=== PATIENT | male | born 1955 | race Caucasian/White ===

== ENCOUNTER 2022-08-10 05:45 | Emergency (ER) | payer MEDICARE, OTHER ==
[2022-08-10 06:52] LABS: ALT (SGPT) 22 U/L (8-55); AST (SGOT) 30 U/L (5-34); Albumin 4.1 g/dL (3.4-4.8); Alkaline Phosphatase 77 U/L (40-110); Anion Gap 18 mmol/L (10-20); BUN (Urea Nitrogen) 23 mg/dL (8.4-25.7); Bilirubin, Total 0.9 mg/dL (0.2-1.2); Calc. Creatinine Clearance 0 mL/min (70-130); Calcium 8.6 mg/dL (7.8-10.44); Carbon Dioxide 21 mmol/L (23-31); Chloride 103 mmol/L (98-107); Estimated GFR 84; Globulin 3.4 g/dL (2.4-3.5); Glucose 149 mg/dL (80-115); Potassium 4.1 mmol/L (3.5-5.1); Protein, Total 7.5 g/dL (5.8-8.1); Sodium 138 mmol/L (136-145)
[2022-08-10 07:08] LABS: INR-International Normal Ratio 2.2; Prothrombin Time 25.6 sec (12.0-14.7)
[2022-08-10 07:20] LABS: Hemoglobin 16.3 g/dL (14.0-18.0); Mean Corpuscular HGB CONC 34.6 g/dL (32.0-36.0); Mean Corpuscular Volume 92.5 fl (78.0-98.0); Red Blood Cell (RBC) Count 5.08 mill/uL (4.70-6.10)
[2022-08-10 07:33] LABS: #Lymphocytes 0.6 thou/uL (1.20-3.40); #Monocytes 0.4 thou/uL (0.11-0.59); #Neutrophils 6.3 thou/uL (1.40-6.50); %Basophils 0.2 % (0.0-1.0); %Eosinophils 0.3 % (0.0-10.0); %Lymphocytes 8.3 % (21.0-51.0); %Monocytes 5.8 % (0.0-10.0); %Neutrophils 85.4 % (42.0-75.0); Large Platelets SLIGHT; MDiff Complete? YES; Platelet Morphology Comment PLT clumps seen-ADEQ
[2022-08-10 07:36] LABS: White Blood Cell (WBC) Count 7.4 10x3/uL (4.8-10.8)
[2022-08-10 07:39] LABS: Bacteria/HPF 3+ HPF (None Seen); Bilirubin Negative (Negative); Blood, Urine 3+ (Negative); Clarity Extra Turbid (Clear); Glucose, Urine (Dipstick) Normal (Negative); Ketone, Urine Trace mg/dL (Negative); Leukocyte 500 Leu/uL (Negative); Nitrite 2+ (Negative); Protein, Urine (Dipstick) 70 mg/dL (Neg-Trace); Specific Gravity, Urine 1.031 (1.002-1.036); Squamous Epithelial None Seen HPF (0-3); Urobilinogen Normal mg/dL (Less than 2); WBC/HPF Greater than 50 HPF (0-3)
[2022-08-10] MEDS ORDERED: cefTRIAXone\\ROCEPHIN 1 GM VIAL ONE (08:23)
== END 2022-08-10 09:42 | disposition home or self-care (01) ==
LOC: ERS 05:45
DX: N30.01 Acute cystitis with hematuria (principal); Z79.01 Long term (current) use of anticoagulants; Z87.891 Personal history of nicotine dependence
CPT/HCPCS: 71045; 80053; 81003; 81015; 85025; 85610; 87077; 87086; 87186; 93005; 96365; J0696

== ENCOUNTER 2022-08-21 08:20 | Outpatient (CLI) | payer MEDICARE, OTHER ==
[2022-08-21] MEDS ORDERED: Iopamidol 370 76% 100 ML VIAL ONE (08:48)
== END 2022-08-21 08:21 | disposition home or self-care (01) ==
LOC: CT 08:20
PROVIDERS: ATTEND Student in an Organized Health Care Education/Training Program
DX: N28.9 Disorder of kidney and ureter, unspecified (principal); N28.1 Cyst of kidney, acquired
CPT/HCPCS: 74177; Q9967

== ENCOUNTER 2022-11-26 10:12 | Outpatient (CLI) | payer MEDICARE, OTHER | END 2022-11-26 10:13 | disposition home or self-care (01) | LOC: RAD 10:12 | PROVIDERS: ATTEND Urology | DX: N28.1 Cyst of kidney, acquired (principal); N28.89 Other specified disorders of kidney and ureter | CPT/HCPCS: 74410; 82565 ==

== ENCOUNTER 2023-12-12 10:29 | Outpatient (CLI) | payer MEDICARE, OTHER | END 2023-12-12 10:30 | disposition home or self-care (01) | LOC: BICULT 10:29 | PROVIDERS: ATTEND Urology | DX: N28.1 Cyst of kidney, acquired (principal); Z12.5 Encounter for screening for malignant neoplasm of prostate; N20.0 Calculus of kidney; Z80.42 Family history of malignant neoplasm of prostate | CPT/HCPCS: 76770; 80048; G0103; 36415 ==

== ENCOUNTER 2024-09-08 16:17 | Outpatient (CLI) | payer MEDICARE, OTHER ==
[2024-09-08 17:18] LABS: #Basophils 0.06 10x3/uL (0.0-0.2); %Basophils 0.9 % (0.0-1.0); %Eosinophils 3.3 % (0.0-10.0); %Lymphocytes 23.3 % (21.0-51.0); %Monocytes 11.4 % (0.0-10.0); Hematocrit 49.9 % (42.0-52.0); Mean Corpuscular HGB CONC 34.1 g/dL (32.0-36.0); Mean Corpuscular Hemoglobin 31.3 pg (27.0-31.0); Mean Corpuscular Volume 91.7 fL (78.0-98.0); Mean Platelet Volume 9.4 fL (7.4-10.4); Platelet Count 166 10x3/uL (130-400); RBC Distribution Width 13.6 % (11.5-14.5); Red Blood Cell (RBC) Count 5.44 mill/uL (4.70-6.10)
== END 2024-09-08 16:18 | disposition home or self-care (01) ==
LOC: LABBT 16:17
PROVIDERS: ATTEND Internal Medicine Cardiovascular Disease
DX: Z01.812 Encounter for preprocedural laboratory examination (principal); R94.39 Abnormal result of other cardiovascular function study
CPT/HCPCS: 85025

== ENCOUNTER 2024-09-17 05:38 | Day surgery (SDC) | payer MEDICARE, OTHER ==
[2024-09-08 16:30] VITALS: BMI 33.5
[2024-09-17] MEDS ORDERED: fentaNYL 50 mcg/mL 1 mL Vial ONE ×2 (06:34→09:05)
[2024-09-17] MEDS ORDERED: Adenosine 6 mg (2 mL) VIAL ONE (06:34)
[2024-09-17] MEDS ORDERED: Heparin 10,000 UNITS/ 10 ML VIAL ONE ×2 (06:35→09:06)
[2024-09-17] MEDS ORDERED: Midazolam HCl 2 mg/2 ml Vial ONE ×2 (06:35→09:05)
[2024-09-17] MEDS ORDERED: Nitroglycerin 50 MG/250 ML BOT 0 ML ONE (06:35)
[2024-09-17 07:33] LABS: Prothrombin Time 12.8 sec (12.0-14.7)
[2024-09-17 07:46] LABS: Albumin 4.1 g/dL (3.1-4.5); Alkaline Phosphatase 74 U/L (40-110); Anion Gap 18 mmol/L (10-20); BUN (Urea Nitrogen) 15 mg/dL (8.4-25.7); Bilirubin, Total 0.3 mg/dL (0.3-1.2); Calc. Creatinine Clearance 115 mL/min (70-130); Calcium 9.6 mg/dL (7.8-10.44); Carbon Dioxide 25 mmol/L (23-31); Chloride 104 mmol/L (98-107); Estimated GFR 89; Globulin 5.6 g/dL (2.4-3.5); Glucose 118 mg/dL (80-115); Potassium 5.6 mmol/L (3.5-5.1); Protein, Total 9.7 g/dL (5.8-8.1); Sodium 141 mmol/L (136-145)
[2024-09-17 08:00] LABS: ALT (SGPT) 130 U/L (Less than 45)
[2024-09-17 09:06] LABS: AST (SGOT) 136 U/L (11-34)
[2024-09-17] MEDS ORDERED: Clopidogrel Bisulfate 300 MG TAB ONE (09:09)
[2024-09-17] MEDS ORDERED: Iopamidol 370 76% 100 ML VIAL ONE (12:22)
== END 2024-09-17 15:35 | disposition home or self-care (01) ==
LOC: CCL 05:38
PROVIDERS: ATTEND Internal Medicine Cardiovascular Disease
PROC: 4A023N7 Measurement of Cardiac Sampling and Pressure, Left Heart, Percutaneous Approach (ICD-10-PCS; principal; 2024-09-17)
DX: R94.39 Abnormal result of other cardiovascular function study (principal); I11.0 Hypertensive heart disease with heart failure; I50.30 Unspecified diastolic (congestive) heart failure; I25.10 Atherosclerotic heart disease of native coronary artery without angina pectoris; E78.00 Pure hypercholesterolemia, unspecified; E78.1 Pure hyperglyceridemia; E03.9 Hypothyroidism, unspecified; K25.4 Chronic or unspecified gastric ulcer with hemorrhage; Z95.1 Presence of aortocoronary bypass graft; Z87.891 Personal history of nicotine dependence; Z98.52 Vasectomy status; Z90.49 Acquired absence of other specified parts of digestive tract; Z88.8 Allergy status to other drugs, medicaments and biological substances; Z79.01 Long term (current) use of anticoagulants; Z79.899 Other long term (current) drug therapy
CPT/HCPCS: 80053; 85347 ×2; 85610; 93005; 93455; C1769 ×3; C1874 ×2; C1887; C9600; J1644; J2250; J3010; 36415; 92928; 92937; 99152; 99153; C9604; J0153; Q9967